=== PATIENT | female | born 1970 | race Caucasian/White ===

== ENCOUNTER 2017-07-15 11:44 | Inpatient (IN) | payer BC, OTHER ==
[2017-06-20 12:20] VITALS: Ht 157.5 cm; Wt 52.3 kg
--- NOTE | 2017-06-20 12:48 | PAT Medication Instructions ---
Service Date Jun 20, 2017. Current Home Medication List Bupropion (Wellbutrin-Xl), 300 MG PO QAM Cyanocobalamin (Vitamin B-12), 1,000 MCG PO QAM Folic Acid (Folic Acid), Unknown Dose PO QAM Gabapentin (Neurontin), 300 MG PO TID Hydrocodon/Acetaminophen 5MG/300MG (Vicodin (5MG/300MG)), 1 TAB PO Q6H PRN for Pain Multivitamin (Multivitamin), 1 TAB PO QAM Thiamine Hcl (Vitamin B-1), 50 MG PO QAM Trazodone Hcl (Trazodone), 50 MG PO HS PRN for Sleep Medication Instructions For Your Scheduled Surgery - Hold the following medications the morning of surgery: Cyanocobalamin (Vitamin B-12), 1,000 MCG PO QAM Folic Acid (Folic Acid), Unknown Dose PO QAM Multivitamin (Multivitamin), 1 TAB PO QAM Thiamine Hcl (Vitamin B-1), 50 MG PO QAM - Take the following medications the morning of surgery with a sip of water OTHERWISE NOTHING TO EAT OR DRINK AFTER MIDNIGHT: Bupropion (Wellbutrin-Xl), 300 MG PO QAM Gabapentin (Neurontin), 300 MG PO TID Hydrocodon/Acetaminophen 5MG/300MG (Vicodin (5MG/300MG)), 1 TAB PO Q6H PRN for Pain (if needed up to 4 hours prior to surgery) - Take the following medications as scheduled the night before surgery: Trazodone Hcl (Trazodone), 50 MG PO HS PRN for Sleep Gabapentin (Neurontin), 300 MG PO TID Hydrocodon/Acetaminophen 5MG/300MG (Vicodin (5MG/300MG)), 1 TAB PO Q6H PRN for Pain If you have any questions please call us at [phone] or [phone] or [phone]
--- NOTE | 2017-06-20 13:31 | DIAGNOSTIC IMAGING REPORT ---
TWO VIEW CHEST CLINICAL HISTORY: Preoperative examination. FINDINGS: PA and lateral chest radiographs are obtained. No prior studies are available for comparison at the time of dictation. The cardiomediastinal silhouette is unremarkable. The lungs and pleural spaces are clear. There is no pneumothorax. The bony thorax appears intact. IMPRESSION: No active disease in the chest. Electronically signed by: Gilberto Joya M.D. 06/20/2017 1:30 PM Dictated Date/Time: 06/20/2017 1:26 PM
[2017-06-20 13:38] LABS: URINE APPEARANCE CLOUDY (CLEAR); URINE COLOR DK YELLOW; URINE EPITHELIAL CELL AUTO >30 /lpf (0-5); URINE NITRITE NEG (NEG); URINE SPECIFIC GRAVITY 1.028 (1.000-1.030); UROBILINOGEN NEG (NEG)
[2017-06-20 13:46] LABS: BUN/CREATININE RATIO 9.9 (10-20); CALCIUM 8.5 mg/dl (8.5-10.1); CREATININE 0.5 mg/dl (0.60-1.20); POTASSIUM 3.9 mmol/L (3.5-5.1)
[2017-06-20 13:47] LABS: MANUAL MICROSCOPIC REQUIRED? NO; REVIEW REQ? NO; URINE BILIRUBIN NEG (NEG)
[2017-06-20 14:10] LABS: BASO % 0.4 %; BASO ABS # 0.03 K/uL (0-0.2); EOS % 0.7 %; HEMATOCRIT 37.5 % (37-47); IG% 0.1 %; LYMPH % 37.2 %; LYMPH ABS # 2.98 K/uL (1.2-3.4); MEAN CORPUSCULAR HEMOGLOBIN 38.3 pg (25-34); MEAN CORPUSCULAR HGB CONC 33.9 g/dl (32-36); MEAN PLATELET VOLUME 9.7 fL (7.4-10.4); MONO % 5.5 %; NEUT % 56.1 %; PLATELET COUNT 318 K/uL (130-400); RED BLOOD COUNT 3.32 M/uL (4.2-5.4); WHITE BLOOD COUNT 8.01 K/uL (4.8-10.8)
[2017-06-20 15:31] LABS: COMPLETE YES; HYPERSEGMENTED POLYS 1+
[~2017-07-15] VITALS: Ht 157.5 cm; Wt 52.3 kg
[2017-07-15] VITALS (7 sets, daily range): BP systolic 111–160; BP diastolic 72–111; PULSE 96–117; TEMP 36.5–36.9; O2SAT 97–100
[~2017-07-15 11:44] MED LIST: BUPRTAB51 PO; CLINDAMYCIN 600 MG/54 ML D5W IV SCH; CYAN10005 PO; FLV1 PO; GABA-113 PO; HYDR-3419 PO; LACTATED RINGER'S 1000ML 1,000 ML IV SCH; MULT-506 PO; THIA50TA3 PO; TRAZ50TA35 PO
[2017-07-15] MEDS ORDERED: HYDROmorphone INJ 1 MG/ML SYR IV PRN (13:00)
[2017-07-15] MEDS ORDERED: PROMETHAZINE HCL INJ 6.25 MG in SODIUM CHLORIDE 0.9% 50ML 50 ML IV PRN (13:00)
[2017-07-15] MEDS ORDERED: EpHEDrine SULFATE INJ 50 MG/ML AMP IV PRN (13:00)
[2017-07-15] MEDS ORDERED: ONDANSETRON INJ 2 MG/ML 2 ML VIAL IV PRN ×2 (13:00→15:45)
[2017-07-15] MEDS ORDERED: ATROPINE SULFATE 0.1 MG/ML 5ML SYR IV PRN (13:00)
--- NOTE | 2017-07-15 13:32 | History and Physical ---
History & Physical Date Jul 15, 2017. Chief Complaint Back and leg pain History of Present Illness The patient is a 47 year old female with complaints of back and leg pain Additional History Hepatic Disease: No Endocrine Disorder: No Kidney Disease: No Hypertension: No Heart Disease: No Bleeding Tendencies: No Infectious Diseases: No Allergies Coded Allergies: Sulfa Antibiotics (Verified Allergy, Severe, NAUSEA/VOMITING, 07/15/17) RADHA Inhibitors (Unverified Allergy, Unknown, UNKNOWN REACTION, 07/15/17) PER PCP RECORDS Penicillins (Verified Adverse Reaction, Severe, SEVERE N/V, 07/15/17) Home Medications Scheduled Bupropion (Wellbutrin-Xl), 300 MG PO QAM Cyanocobalamin (Vitamin B-12), 1,000 MCG PO QAM Folic Acid (Folic Acid), Unknown Dose PO QAM Gabapentin (Neurontin), 300 MG PO TID Multivitamin (Multivitamin), 1 TAB PO QAM Thiamine Hcl (Vitamin B-1), 50 MG PO QAM Scheduled PRN Hydrocodon/Acetaminophen 5MG/300MG (Vicodin (5MG/300MG)), 1 TAB PO Q6H PRN for Pain Trazodone Hcl (Trazodone), 50 MG PO HS PRN for Sleep Physical Examination Skin: warm/dry, no rash Eyes: normal inspection, EOMI, sclerae normal ENT: normal ENT inspection, pharynx normal Head: normocephalic, atraumatic Neck: supple, no adenopathy, trachea midline Respiratory/Chest: lungs clear, normal breath sounds, no respiratory distress Cardiovascular: regular rate, rhythm, no edema, no murmur Abdomen / GI: normal bowel sounds, non tender Back: normal inspection Extremities: normal inspection, normal range of motion Neurologic/Psych: no motor/sensory deficits, alert, normal reflexes, oriented x 3 Diagnosis Lumbar spinal stenosis Plan of Treatment TLIF L5-S1 with infuse bone graft
--- NOTE | 2017-07-15 13:32 | History & Physical Bridge Note ---
H&P Re-Evaluation Bridge Note: I have examined the patient, reviewed the History & Physical and in the interval since the performance of the History & Physical I have noted the following changes of clinical significance: No changes noted
[2017-07-15] MEDS ORDERED: MIDAZOLAM HCL 1 MG/ML 2ML VIAL ONE (13:42)
[2017-07-15] MEDS ORDERED: FENTANYL CITRATE INJ 50 MCG/1 ML 2 ML VIAL ONE ×2 (13:42→14:21)
[2017-07-15] MEDS ORDERED: HYDROmorphone INJ 2 MG/ML SYR/VIAL ONE ×2 (13:44→17:53)
[2017-07-15] MEDS ORDERED: BUPIVACAINE/EPINEPHRINE 0.5% MPF 1:200,000 30 ML VIAL ONE (13:56)
[2017-07-15] MEDS ORDERED: BACITRACIN 50000 UNIT VIAL ONE (13:56)
[2017-07-15] MEDS ORDERED: NEOSTIGMINE METHYLSULFATE 1 MG/ML 10ML VIAL ONE (14:49)
[2017-07-15] MEDS ORDERED: METOPROLOL TARTRATE 1 MG/ML VIAL ONE (14:49)
[2017-07-15] MEDS ORDERED: PROPOFOL IV EMULSION 10 MG/ML 20 ML VIAL IV ONE (14:49)
[2017-07-15] MEDS ORDERED: LIDOCAINE HCL 2% 2 ML VIAL (20MG/ML) ONE (14:49)
[2017-07-15] MEDS ORDERED: ROCURONIUM BROMIDE 10 MG/ML 5 ML VIAL IV ONE (14:49)
[2017-07-15] MEDS ORDERED: DEXAMETHASONE SOD INJ 4 MG/ML VIAL ONE (14:49)
[2017-07-15] MEDS ORDERED: GLYCOPYRROLATE INJ 0.2 MG/ML VIAL ONE ×2 (14:49→17:16)
[2017-07-15] MEDS ORDERED: ONDANSETRON INJ 2 MG/ML 2 ML VIAL ONE (14:49)
[2017-07-15] MEDS ORDERED: FLOSEAL HEMOSTATIC MATRIX 10ML TOP ONE (15:28)
[2017-07-15] MEDS ORDERED: SODIUM CHLORIDE 0.9% 1000ML 1,000 ML IV SCH (15:32)
--- NOTE | 2017-07-15 15:39 | [facility] Operative Report ---
Operative Report Operative Date Jul 15, 2017. Pre-Operative Diagnosis lumbar spinal stenosis Post-Operative Diagnosis same Procedure(s) Performed #1 lumbar decompression medial facetectomy foraminotomies L5-S1. #2 posterior spinal fusion L5-S1. #3 placement posterior instrumentation L5-S1. #4 interbody fusion L5-S1. #5 placement peek cage 11 x 22 mm L5-S1. #6 placement locally harvested morcellized autograft and posterior gutters. #7 placement infuse collagen sponge combined Master graft posterior gutters and ostial amp interbody space. Surgeon Dr. Green Passenger Elevator Operator Surgeon(s) Julianne Pringle PA-C Estimated Blood Loss 100 ml Findings Lumbar spinal stenosis with herniated was pulposus Specimens none per surgeon Description of Procedure Patient was met with preoperatively case discussed all questions addressed. After informed consent was obtained patient was taken to the operative suite underwent intubation and placed in a prone position the [place] table top Rubio frame. All bony prominences were well-padded eyes inspected to ensure there is no external pressure placed upon them. This point the lumbar spine was prepped and draped nostril fashion. Sharp dissection with the assistance of Bovie cautery was performed onto an exposing the lamina and transverse processes of L5 and sacral alar bilaterally. From a caudal to cephalad fashion complete laminectomy of L5 was performed including medial facet was foraminotomies. I also removed nucleus pulposus L5-S1 on the left with significant appreciable encroachment of the traversing S1 nerve root. After complete decompression pedicle screws were placed in L5 and S1 levels bilaterally with assistance of fluoroscopy the purposes patricia placed. Through a trans-foraminal approach on the left complete discectomy was performed and plate created to subcortical bleeding bone and a 11 x 22 mm peek cage filled with ostial amp tapped in position. The rods were then compressed locked into final position bilaterally. Transverse processes of L5 and the sacral alar burred to subcortical bleeding bone. Infuse collagen sponge mask graft locally harvested morcellized autograft was placed in the posterior lateral gutters. 15 round LIZETH drain inserted. Incision was then closed with 1 Vicryl in the fascia 2-0 Vicryl subcutaneous cutaneously 4-0 Monocryl for final skin closure Steri-Strip sterile dressing placed patient we can take PACU stable condition. Please note Julianne Martinez was present throughout the entire procedure involved in patient positioning complex portions of the surgeon final skin closure. I attest to the content of the Intraoperative Record and any orders documented therein. Any exceptions are noted below.
[2017-07-15] MEDS ORDERED: DO NOT ADMINISTER FLU VACCINE PRN ×3 (15:45)
[2017-07-15] MEDS ORDERED: FAMOTIDINE 20 MG TAB PO PRN (15:45)
[2017-07-15] MEDS ORDERED: NALOXONE HCL 0.4 MG/1 ML VIAL/CARP IV PRN ×2 (15:45)
[2017-07-15] MEDS ORDERED: BISACODYL 10 MG SUPP PR PRN (15:45)
[2017-07-15] MEDS ORDERED: SOD PHOSPHATE/SOD BIPHOSPHATE ENEMA 132 ML BTL PR PRN (15:45)
[2017-07-15] MEDS ORDERED: METOCLOPRAMIDE HCL INJ 5 MG/ML 2 ML VIAL IV PRN (15:45)
[2017-07-15] MEDS ORDERED: DO NOT ADMINISTER PNEUMOCOCCAL VACCINE PRN ×2 (15:45)
[2017-07-15] MEDS ORDERED: MAGNESIUM HYDROXIDE SUSP 30 ML UDC PO PRN (15:45)
[2017-07-15] MEDS ORDERED: hydrOXYzine HCL 25 MG TAB PO PRN (15:45)
[2017-07-15] MEDS ORDERED: PROMETHAZINE HCL INJ 12.5 MG in SODIUM CHLORIDE 0.9% 50ML 50 ML IV PRN (15:45)
[2017-07-15] MEDS ORDERED: ACETAMINOPHEN IV 100 ML IV PRN (15:45)
[2017-07-15] MEDS ORDERED: ALUMINUM/MAGNESIUM SUSP 30 ML UDC PO PRN (15:45)
[2017-07-15] MEDS ORDERED: LORAZEPAM INJ 0.5 MG in SYRINGE 0 ML IV PRN (15:45)
[2017-07-15] MEDS ORDERED: TRAZODONE HCL 50 MG TAB PO PRN (15:45)
--- NOTE | 2017-07-15 15:56 | DIAGNOSTIC IMAGING REPORT ---
LUMBAR SPINE 2 OR 3 VIEW CLINICAL HISTORY: L5-S1 LUMBAR INTERBODY FUSION COMPARISON STUDY: Lumbar spine MRI December 27, 2016 and lumbar spine radiograph January 31, 2017. Fluoroscopy time: 16.3 seconds. FINDINGS: These 2 fluoroscopic images demonstrate an L5-S1 discectomy with interbody spacer placement. There is a posterior decompression with bilateral pedicle screws and interconnecting rods at the L5 and S1 levels. Hardware is intact. IMPRESSION: Expected findings following L5-S1 discectomy and bilateral pedicle screw fusion. Electronically signed by: Justin Chance M.D. 07/15/2017 3:55 PM Dictated Date/Time: 07/15/2017 3:54 PM
[2017-07-15] MEDS ORDERED: HydrALAZINE HCL 20 MG/ML VIAL ONE ×2 (16:04→17:15)
--- NOTE | 2017-07-15 16:48 | Anesthesiology Progress Note ---
Anesthesia Progress Note Date of Service Jul 15, 2017. Progress Notes Pt very slow to arouse. Spent 40minutes in PACU to determine etiology. IGT=778 , 4/4 TOF, ETCO2=41 via mask, oral and nasal AW with encouragement to deep breathe and cough, pupils@5mm. VSS throughout period. 150/96-91-16-99% oxymask. Patient received fentanyl 200mcg and dilaudid 2mg given intraop. Finally decided to give narcan 0.08mgx2 with good effect. Patient much more arousable and deep breathing more effectively. Will fill out incident report.
[2017-07-15] MEDS: HYDROmorphone HCL 0.5MG/ML 50 ML CASSETTE IV PRN ×3 (17:12→23:04)
[2017-07-15] MEDS ORDERED: LABETALOL HCL IV 5 MG/ML 20ML IV ONE ×2 (17:15→17:16)
[2017-07-15] MEDS ORDERED: ACETAMINOPHEN 1000 MG/100 ML IV IV ONE (17:15)
[2017-07-15] MEDS: FENTANYL CITRATE INJ 50 MCG/1 ML 2 ML VIAL IV PRN ×4 (17:23→17:38)
[2017-07-15] MEDS ORDERED: NURSING VERBAL MED ORDER ONE ×3 (17:30→17:55)
[2017-07-15] MEDS ORDERED: HYDROmorphone INJ 0.5 MG/0.5 ML SYR IV PRN ×2 (18:15→18:16)
[2017-07-15] MEDS ORDERED: FENTANYL CITRATE INJ 50 MCG/1 ML 2 ML VIAL IV PRN (18:21)
--- NOTE | 2017-07-15 18:57 | Anesthesiology Progress Note ---
Anesthesia Post Op Note Date & Time Jul 15, 2017 at 18:55 Vital Signs Pain Intensity: 7 Vital Signs Past 12 Hours Date Time Temp Pulse Resp B/P (MAP) Pulse Ox O2 Delivery O2 Flow Rate FiO2 07/15/17 18:45 36.5 94 16 121/80 100 Nasal Cannula 4 07/15/17 18:41 126/78 07/15/17 18:38 101 22 07/15/17 18:38 101 22 100 07/15/17 18:37 116/71 07/15/17 18:33 102 20 100 07/15/17 18:33 101 20 07/15/17 18:31 127/93 07/15/17 18:28 102 16 98 07/15/17 18:28 102 16 07/15/17 18:27 132/82 07/15/17 18:23 99 22 07/15/17 18:23 100 22 100 07/15/17 18:21 114/78 07/15/17 18:18 101 18 100 07/15/17 18:18 100 18 07/15/17 18:16 102/75 07/15/17 18:13 98 18 100 07/15/17 18:13 97 18 07/15/17 18:11 112/71 07/15/17 18:08 97 21 07/15/17 18:08 97 21 100 07/15/17 18:06 108/71 07/15/17 18:03 92 22 99 07/15/17 18:03 94 22 07/15/17 18:01 104/77 07/15/17 17:58 92 21 100 07/15/17 17:58 92 21 07/15/17 17:56 113/73 07/15/17 17:53 96 26 99 07/15/17 17:53 96 26 07/15/17 17:51 123/78 07/15/17 17:48 99 27 99 07/15/17 17:48 99 27 07/15/17 17:46 127/85 07/15/17 17:43 93 26 07/15/17 17:43 94 26 99 07/15/17 17:41 105/72 07/15/17 17:38 92 29 07/15/17 17:38 92 29 100 07/15/17 17:36 115/76 07/15/17 17:33 90 21 99 11/13/17 17:33 90 21 17 17:31 114/78 17 17:28 92 20 17 17:28 91 20 99 17 17:26 109/73 17 17:23 90 21 17 17:23 90 21 99 17 17:21 107/73 17 17:18 92 24 99 17 17:18 90 24 17 17:16 112/77 17 17:13 92 17 98 07/15/17 17:13 94 17 07/15/17 17:11 125/84 07/15/17 17:08 93 16 100 17 17:08 93 16 07/15/17 17:06 132/89 17 17:03 93 29 100 17 17:03 93 29 07/15/17 17:02 94 24 100 07/15/17 17:02 94 24 07/15/17 17:01 94 20 127/84 100 17 17:01 94 20 07/15/17 16:56 96 22 134/88 100 07/15/17 16:56 96 22 07/15/17 16:51 98 25 17 16:51 98 25 167/94 98 17 16:46 88 21 185/113 99 17 16:46 88 21 17 16:41 97 28 07/15/17 16:41 97 28 150/96 100 17 16:36 91 18 17 16:36 90 18 155/95 99 17 16:31 91 18 152/93 98 17 16:31 84 18 17 16:30 84 16 152/93 97 Mask 10 17 16:26 89 18 17 16:26 88 18 154/94 99 17 16:21 84 19 17 16:21 84 19 146/92 99 17 16:20 82 21 146/92 99 Mask 10 17 16:16 84 17 17 16:16 84 17 98 17 16:15 137/89 07/15/17 16:12 138/92 07/15/17 16:11 82 17 07/15/17 16:11 36.1 82 22 138/92 98 Mask 10 07/15/17 16:11 82 17 98 07/15/17 12:30 36.9 112 20 131/111 99 Room Air 160/105 Notes Mental Status: alert / awake / arousable, participated in evaluation Pt Amnestic to Procedure: Yes Nausea / Vomiting: adequately controlled Pain: adequately controlled, improving with treatment Airway Patency, RR, SpO2: stable & adequate BP & HR: stable & adequate Hydration State: stable & adequate Anesthetic Complications: no major complications apparent Patient required two small doses of narcan in PACU with improvement in respiratory status. Unfortunately, she then experienced difficult to control post-op pain. I slowly added back small doses of narcotic with improvement in her pain scores while maintaining stable vital signs. COURT MANAGER was already modified by previous anesthesia provider and she was eventually transferred to floor in stable condition.
[2017-07-15] MEDS: LACTATED RINGER'S 1000ML 1,000 ML IV SCH (20:46)
--- NOTE | 2017-07-15 20:53 | Medical Consult ---
Consultation Date of Consultation: Jul 15, 2017. Attending Physician: Torey Green D.O. Reason for Consultation: Elevated blood pressure/ post op medical management History of Present Illness 47 yo Female with PMH of chronic back pain associated with left LE numbness, failed conservative management with steroid injection and physical management. S /P lumbar decompression surgery L5-S1. After the procedure today while in PACU , her blood pressure was elevated and she was hypoxic. She received 2 Narcan [facility] PACU[facility] Pt said that she does not have any history of elevating blood pressure. Denies any chest pain, palpitation, dizziness, SOB. Past Medical/Surgical History Chronic Back Pain Social History Smoking Status: Current Every Day Smoker Allergies Coded Allergies: Sulfa Antibiotics (Verified Allergy, Severe, NAUSEA/VOMITING, 07/15/17) RADHA Inhibitors (Unverified Allergy, Unknown, UNKNOWN REACTION, 07/15/17) PER PCP RECORDS Penicillins (Verified Adverse Reaction, Severe, SEVERE N/V, 07/15/17) Current Inpatient Medications Current Inpatient Medications Medications (Trade) Dose Ordered Sig/[place] Route Start Time Stop Time Status Last Admin Dose Admin Lactated Ringer's 1,000 ml @ 15 mls/hr Q24H IV 07/15/17 06:00 07/16/17 05:59 07/15/17 13:01 15 MLS/HR Clindamycin Phosphate 600 mg/ Dextrose 54 ml @ 100 mls/hr Q8H IV 07/15/17 15:45 07/16/17 00:18 UNV Dexamethasone Sodium Phosphate 6 mg/Syringe 1.5 ml @ 1 mls/min Q8H IV 07/16/17 00:00 07/16/17 16:02 Promethazine HCl 12.5 mg/Sodium Chloride 50.5 ml @ 202 mls/hr Q6H PRN IV 07/15/17 15:45 08/14/17 15:44 Ondansetron HCl (Zofran Inj) 4 mg Q6H PRN IV 07/15/17 15:45 08/14/17 15:44 Metoclopramide HCl (Reglan Inj) 10 mg Q6H PRN IV 07/15/17 15:45 08/14/17 15:44 Lorazepam (Ativan Tab) 0.5 mg Q8H PRN PO 07/15/17 15:45 08/14/17 15:44 Lorazepam 0.5 mg/ Syringe 0.25 ml @ 1 mls/min Q8H PRN IV 07/15/17 15:45 08/14/17 15:44 07/15/17 19:27 1 MLS/MIN Pneumococcal Polysaccharide Vaccine 1 ea PRN PRN N/A 07/15/17 15:45 08/14/17 15:44 Influenza Virus Vacc Triv Types A&B 1 ea PRN PRN N/A 07/15/17 15:45 08/14/17 15:44 Lactated Ringer's 1,000 ml @ 75 mls/hr [id number] IV 07/15/17 15:32 08/14/17 15:31 Polyethylene (Miralax Powder Packet) 17 gm Q6 PO 07/17/17 06:00 08/16/17 05:59 Bisacodyl (Dulcolax Supp) 10 mg DAILY PRN DE 07/15/17 15:45 08/14/17 15:44 Magnesium Hydroxide (Milk Of Magnesia Susp) 30 ml DAILY PRN PO 07/15/17 15:45 08/14/17 15:44 Hydromorphone HCl (Dilaudid Inj) 0.5-1mg prn moder... Q3H PRN IV 07/16/17 06:01 07/30/17 06:00 Oxycodone HCl (Roxicodone Immediate Rel Tab) 5-10mg prn moderate to sev... Q4H PRN PO 07/16/17 06:01 07/30/17 06:00 Acetaminophen (Tylenol Tab) 1,000 mg Q8H PRN PO 07/15/17 15:45 08/14/17 15:44 Acetaminophen 100 ml @ 400 mls/hr Q8H PRN IV 07/15/17 15:45 08/14/17 15:44 Naloxone HCl (Narcan Inj) 0.1 mg Q5M PRN IV 07/15/17 15:45 08/14/17 15:44 Senna/Docusate Sodium (Senokot S Tab) 2 tab HS PO 07/15/17 21:00 08/14/17 20:59 Sodium Biphosphate/ Sodium Phosphate (Fleet Enema) 132 ml ONE PRN DE 07/15/17 15:45 08/14/17 15:44 Hydroxyzine HCl (Vistaril Tab) 25 mg Q8H PRN PO 07/15/17 15:45 08/14/17 15:44 Al Hydroxide/Mg Hydroxide (Maalox Susp) 30 ml Q6H PRN PO 07/15/17 15:45 08/14/17 15:44 Famotidine (Pepcid Tab) 20 mg Q12 PRN PO 07/15/17 15:45 08/14/17 15:44 Diphenhydramine HCl (Benadryl Cap) 25 mg Q6H PRN PO 07/15/17 15:45 08/14/17 15:44 Miscellaneous Information (Discontinue DENSITOMETRIST) 1 ea ONE ONCE N/A 07/16/17 06:00 07/16/17 06:01 Naloxone HCl (Narcan Inj) 0.1 mg Q5M PRN IV 07/15/17 15:45 07/16/17 06:01 Hydromorphone HCl (Dilaudid Veneer Joiner) 25 mg PRN PRN IV 07/15/17 15:45 07/16/17 06:01 07/15/17 18:58 25 MG Sodium Chloride 1,000 ml @ 15 mls/hr Q24H IV 07/15/17 15:32 07/16/17 06:01 Bupropion HCl (Wellbutrin-Xl Tab) 300 mg QAM PO 07/16/17 09:00 08/15/17 08:59 Gabapentin (Neurontin Cap) 300 mg TID PO 07/15/17 21:00 08/14/17 20:59 UNV Thiamine HCl (Vitamin B-1 Tab) 50 mg QAM PO 07/16/17 09:00 08/15/17 08:59 UNV Trazodone HCl (Desyrel Tab) 50 mg HS PRN PO 07/15/17 15:45 08/14/17 15:44 Hydromorphone HCl (Dilaudid Inj) 0.2 mg Q5M PRN IV 07/15/17 18:16 07/15/17 22:00 Fentanyl Citrate (Fentanyl Inj) 25 mcg Q5M PRN IV 07/15/17 18:21 Review of Systems Constitutional: No fever, No chills Eyes: + worsening of vision, + eye pain ENT: No nasal symptoms, No sore throat Respiratory: No cough, No sputum, No shortness of breath Cardiovascular: No chest pain, No claudication, No palpitations Abdomen: No pain, No nausea, No vomiting Musculoskeletal: + joint pain, No calf pain Genitourinary - Female: No dysuria, No urinary frequency Neurologic: No memory loss Psychiatric: No substance abuse Endocrine: No fatigue Hematologic / Lymphatic: No abnormal bleeding/bruising Integumentary: No rash, No itch Physical Exam Date Time Temp Pulse Resp B/P (MAP) Pulse Ox O2 Delivery O2 Flow Rate FiO2 07/15/17 19:27 36.8 101 18 128/79 (95) 99 Nasal Cannula 2.0 07/15/17 19:00 100 Nasal Cannula 2.0 07/15/17 19:00 36.5 96 16 127/83 (98) 100 Nasal Cannula 2.0 07/15/17 19:00 100 Nasal Cannula 2.0 07/15/17 18:45 36.5 94 16 121/80 100 Nasal Cannula 4 07/15/17 18:41 126/78 07/15/17 18:38 101 22 07/15/17 18:38 101 22 100 07/15/17 18:37 116/71 07/15/17 18:33 102 20 100 07/15/17 18:33 101 20 07/15/17 18:31 127/93 07/15/17 18:28 102 16 98 07/15/17 18:28 102 16 07/15/17 18:27 132/82 07/15/17 18:23 99 22 07/15/17 18:23 100 22 100 07/15/17 18:21 114/78 07/15/17 18:18 101 18 100 07/15/17 18:18 100 18 07/15/17 18:16 102/75 07/15/17 18:13 98 18 100 07/15/17 18:13 97 18 07/15/17 18:11 112/71 07/15/17 18:08 97 21 07/15/17 18:08 97 21 100 07/15/17 18:06 108/71 07/15/17 18:03 92 22 99 07/15/17 18:03 94 22 07/15/17 18:01 104/77 11/13/17 17:58 92 21 100 13/17 17:58 92 21 17 17:56 113/73 17 17:53 96 26 99 07/15/17 17:53 96 26 07/15/17 17:51 123/78 17 17:48 99 27 99 07/15/17 17:48 99 27 17 17:46 127/85 17 17:43 93 26 17 17:43 94 26 99 1317 17:41 105/72 17 17:38 92 29 07/15/17 17:38 92 29 100 17 17:36 115/76 17 17:33 90 21 99 17 17:33 90 21 17 17:31 114/78 17 17:28 92 20 17 17:28 91 20 99 17 17:26 109/73 17 17:23 90 21 17 17:23 90 21 99 17 17:21 107/73 17 17:18 92 24 99 17 17:18 90 24 17 17:16 112/77 17 17:13 92 17 98 17 17:13 94 17 07/15/17 17:11 125/84 17 17:08 93 16 100 17 17:08 93 16 17 17:06 132/89 07/15/17 17:03 93 29 100 17 17:03 93 29 17 17:02 94 24 100 17 17:02 94 24 17 17:01 94 20 127/84 100 17 17:01 94 20 17 16:56 96 22 134/88 100 07/15/17 16:56 96 22 07/15/17 16:51 98 25 1317 16:51 98 25 167/94 98 13/17 16:46 88 21 185/113 99 13/17 16:46 88 21 17 16:41 97 28 07/15/17 16:41 97 28 150/96 100 07/15/17 16:36 91 18 07/15/17 16:36 90 18 155/95 99 07/15/17 16:31 91 18 152/93 98 07/15/17 16:31 84 18 07/15/17 16:30 84 16 152/93 97 Mask 10 07/15/17 16:26 89 18 07/15/17 16:26 88 18 154/94 99 07/15/17 16:21 84 19 07/15/17 16:21 84 19 146/92 99 07/15/17 16:20 82 21 146/92 99 Mask 10 07/15/17 16:16 84 17 07/15/17 16:16 84 17 98 07/15/17 16:15 137/89 07/15/17 16:12 138/92 07/15/17 16:11 82 17 07/15/17 16:11 36.1 82 22 138/92 98 Mask 10 07/15/17 16:11 82 17 98 07/15/17 12:30 36.9 112 20 131/111 99 Room Air 160/105 General Appearance: WD/WN, no apparent distress Head: normocephalic, atraumatic Eyes: PERRL, EOMI ENT: hearing grossly normal Neck: no JVD, trachea midline Respiratory/Chest: normal breath sounds, no respiratory distress, no accessory muscle use Cardiovascular: no edema, no JVD, + tachycardia Abdomen/GI: normal bowel sounds, non tender Back: + pertinent finding (Back pain, LIZETH drainage in place, dressing) Extremities/Musculoskelatal: no calf tenderness, no pedal edema Neurologic/Psych: alert, normal mood/affect, normal reflexes, oriented x 3 Skin: warm/dry, no rash Laboratory Results Last 24 Hours Test 07/15/17 16:25 Bedside Glucose 166 mg/dl Assessment & Plan Chronic Back Pain S/P day#0 Lumbar decompression L5-S1 performed by Dr. Green Continue pain control as per ortho Monitor hgb Incentive spirometry Hypoxia Mostly related to sedation/opiate Received Narcan in PACU Has been saturated 99% on 2L Continue incentive spirometry Stable Elevated BP Occurs in PACU possible related to anxiety due to hypoxia BP stable now continue monitor BP Elevated Glucose Mostly related to steroid Check Hba1c in am Continue monitor DVT px as per Ortho CODE Status FULL CODE
[2017-07-15] MEDS: DOCUSATE SODIUM/SENNA 50/8.6MG TAB PO SCH (21:06)
[2017-07-15] MEDS: GABAPENTIN 300 MG CAP PO SCH (21:06)
[2017-07-15] MEDS: CLINDAMYCIN IV 600 MG in DEXTROSE 5% 50ML 46 ML IV SCH (21:36)
[2017-07-15] MEDS: DEXAMETHASONE INJ 6 MG in SYRINGE 0 ML IV SCH (23:34)
[2017-07-16 03:10] VITALS: BP 136/87; PULSE 114; TEMP 36.8; O2SAT 97
[2017-07-16] MEDS: LORAZEPAM 0.5 MG TAB PO PRN (04:06)
[2017-07-16] MEDS: LACTATED RINGER'S 1000ML 1,000 ML IV SCH (04:52)
[2017-07-16] MEDS: CLINDAMYCIN IV 600 MG in DEXTROSE 5% 50ML 46 ML IV SCH (05:26)
[2017-07-16] MEDS ORDERED: NURSING VERBAL MED ORDER ONE (05:45)
[2017-07-16] MEDS ORDERED: DC PCA ONE (06:00)
[2017-07-16] MEDS: OXYCODONE HCL IR 5 MG TAB (IMMEDIATE RELEASE) PO PRN ×3 (06:35→14:46)
[2017-07-16 07:11] VITALS: BP 159/96; PULSE 109; TEMP 36.6; O2SAT 97
[2017-07-16 07:29] LABS: HEMATOCRIT 33.5 % (37-47); IG% 0.3 %; LYMPH % 4.9 %; LYMPH ABS # 0.65 K/uL (1.2-3.4); MEAN CELL VOLUME 110.6 fL (80-100); MEAN CORPUSCULAR HEMOGLOBIN 37.6 pg (25-34); MEAN PLATELET VOLUME 9.4 fL (7.4-10.4); MONO % 5.1 %; NEUT % 89.7 %; PLATELET COUNT 287 K/uL (130-400); RED BLOOD COUNT 3.03 M/uL (4.2-5.4); WHITE BLOOD COUNT 13.25 K/uL (4.8-10.8)
[2017-07-16] MEDS: ACETAMINOPHEN 500 MG TAB PO PRN (07:47)
[2017-07-16] MEDS: DEXAMETHASONE INJ 6 MG in SYRINGE 0 ML IV SCH ×2 (07:48→16:06)
[2017-07-16 07:50] LABS: COMPLETE YES; HYPERSEGMENTED POLYS 1+; VACUOLIZATION 1+
[2017-07-16 07:56] LABS: BUN/CREATININE RATIO 7.4 (10-20); CALCIUM 8.4 mg/dl (8.5-10.1); CREATININE 0.56 mg/dl (0.60-1.20); POTASSIUM 3.3 mmol/L (3.5-5.1)
--- NOTE | 2017-07-16 08:04 | Anesthesiology Progress Note ---
Anesthesia Post Op Note Date & Time Jul 16, 2017 at 08:03 Vital Signs Pain Intensity: 8.0 Vital Signs Past 12 Hours Date Time Temp Pulse Resp B/P (MAP) Pulse Ox O2 Delivery O2 Flow Rate FiO2 07/16/17 07:11 36.6 109 19 159/96 (117) 97 Room Air 07/16/17 03:10 36.8 114 16 136/87 (103) 97 Room Air 07/15/17 23:32 Room Air 07/15/17 23:01 36.9 117 18 124/78 (93) 98 Room Air 07/15/17 22:02 36.5 116 16 111/75 (87) 99 Nasal Cannula 2.0 07/15/17 21:07 36.5 114 16 112/72 (85) 99 Nasal Cannula 2.0 07/15/17 20:05 36.5 109 18 128/86 (100) 97 Room Air Notes Mental Status: alert / awake / arousable, participated in evaluation Pt Amnestic to Procedure: Yes Nausea / Vomiting: adequately controlled Pain: adequately controlled Airway Patency, RR, SpO2: stable & adequate BP & HR: stable & adequate Hydration State: stable & adequate Anesthetic Complications: no major complications apparent
[2017-07-16] MEDS: BuPROPion XL 300 MG TABCR PO SCH (08:52)
[2017-07-16] MEDS: THIAMINE HCL 50 MG TAB PO SCH (08:52)
[2017-07-16] MEDS: GABAPENTIN 300 MG CAP PO SCH ×3 (08:53→20:43)
[2017-07-16] MEDS ORDERED: RXC5 PO (10:17)
--- NOTE | 2017-07-16 10:17 | Discharge Instructions ---
Discharge Instructions Date of Service Jul 16, 2017. Admission Reason for Admission: Spinal Stenosis Discharge Discharge Diagnosis / Problem: lumbar stenosis Discharge Goals Goal(s): Improve function Activity Recommendations Activity Limitations: per Instructions/Follow-up section . Instructions / Follow-Up Instructions / Follow-Up ACTIVITY RECOMMENDATIONS: SELF CARE INSTRUCTIONS AFTER THORACIC/LUMBAR FUSIONS 1. You may walk to your tolerance. It is good exercise for your legs and back. Expect some back and intermittent leg aches and pains. 2. You may perform "counter-top" level activities (make a sandwich, marcia with a project, etc.). 3. No bending or lifting of more than 10 pounds or back twisting of any nature (roll like a log when turning in bed). 4. You may ride in a car for 20-30 minutes at a time. No driving until after your first visit with your doctor. 5. Frequent changes of position and restricting sitting to 30 minutes at a time will help limit the amount of back spasms and stiffness you may experience. 6. You may discontinue the use of ambulatory aids (cane, crutches, etc.) once your strength and confidence allow. 7. You may principal web developer the shower and let water strike your incision when you arrive home at least once daily. Do not take a tub bath, sit in a hot tub or go into a swimming pool until after your first recheck in the office. SPECIAL CARE INSTRUCTIONS: VERY IMPORTANT TO READ AND REVIEW A. Your surgical incision has been closed with a cosmetic suture under the skin that will dissolve in about 6 weeks. In 14 days, you can use a pair of clean scissors and cut the suture that is left outside of the skin at the ends of your incision. 1. The small skin tapes can be removed 7 days after surgery if they have not fallen off by that point. 2. You may keep the wound open to air as much as possible to promote healing after post-op day number 5 unless told otherwise by your doctor. 3. If you think the wound looks like it is becoming infected (redness or worsening drainage) and/or you are experiencing fever, chill or worsening back pain and muscle spasms, contact the office so that we may evaluate you as soon as possible. B. Complications are uncommon, but please contact us if you have any signs or symptoms of: 1. wound infection (fever higher than 102.5 degrees F, redness, separation of wound, drainage, or increasing pain from the incision) 2. blood clots in legs (pain, swelling, redness and warmth in legs) 3. urinary tract infection (fever higher than 102.5 degrees F, burning upon urination or increased frequency of urination) 4. nerve problems (inability to walk on your toes or heels, numbness, loss of bowel or bladder control) 5. any other symptoms that concern you C. Please call the office at if you have any concerns or questions about your operation or recovery. D. No smoking! Smoking drastically decreases the chance of a solid fusion. E. Do not take any anti-inflammatory medications (Indocin, Advil, Motrin, Aspirin, Naprosyn, etc.) as these may inhibit the chance of a solid fusion. Tylenol is okay to take for pain. MANAGING PAIN AFTER SPINAL SURGERY 1. Narcotic medication is intended for short-term use and will be provided for surgical pain. Surgical pain usually lasts for a period of 4-6 weeks. Narcotic medication includes Percocet, Vicodin, Darvocet, Tylenol #3 or Lortab. 2. Longer-term pain is more appropriately treated with non-narcotic medication such as Tylenol ES. 3. Muscle spasm is not appropriately treated with narcotics. Muscle relaxers such as Soma, Flexeril or Skelaxin can be used along with Tylenol ES. 4. Remember that we all live with some "aches and pains". This is not unusual or uncommon after an injury or as we get older. a. Back pain is expected and may include muscle spasms for 4 to 6 weeks after surgery. The pain should gradually improve. If the pain worsens for no apparent reason, please contact the office. b. Intermittent leg pain may also be experienced and should not be concerned about unless it worsens for no apparent reason. If so, please contact the office. 5. We will provide appropriate medication within the normal guidelines of their prescribed use. We will also be very cautious and aware of potential abuse and extended duration of patients' medication needs. a. Pain medications are for your comfort and to assist with sleep and rest so that the tissue can heal. They are not provided in order to return to normal activity and should not be used through the day. To do so or worsening pain at night can result from ongoing tissue damage and development of tolerance to the prescribed medicine. 6. Please allow 2-3 days to process refills. Prescriptions will not be mailed but must be picked up at the office. FOLLOW UP VISIT: Keep your scheduled follow-up appointment. Any questions, please call the office at . Current Hospital Diet Patient's current hospital diet: Regular Diet Discharge Diet Recommended Diet: Regular Diet Procedures Procedures Performed: #1 lumbar decompression medial facetectomy foraminotomies L5-S1. #2 posterior spinal fusion L5-S1. #3 placement posterior instrumentation L5-S1. #4 interbody fusion L5-S1. #5 placement peek cage 11 x 22 mm L5-S1. #6 placement locally harvested morcellized autograft and posterior gutters. #7 placement infuse collagen sponge combined Master graft posterior gutters and ostial amp interbody space. Pending Studies Studies pending at discharge: no Medical Emergencies . Who to Call and When: Medical Emergencies: If at any time you feel your situation is an emergency, please call 911 immediately. . Non-Emergent Contact Non-Emergency issues call your: Primary Care Provider . "Provider Documentation" section prepared by Torey Green. . VTE Core Measure Inpt VTE Proph given/why not?: Vance Qiu, [facility]
[2017-07-16 10:58] VITALS: BP 144/94; PULSE 108; O2SAT 97
[2017-07-16] MEDS: HYDROmorphone INJ 0.5 MG/0.5 ML SYR IV PRN ×4 (12:20→22:35)
--- NOTE | 2017-07-16 15:06 | Progress Note ---
Progress Note Date of Service Jul 16, 2017. Progress Note Patient's postop day #1. Back pain is controlled. Leg symptoms improved. She seemed waiting halls. Vital signs are stable. LIZETH drain decreasing appropriately. Assessment status post lumbar decompression fusion. Planned this time continue physical therapy advance her bowel regimen anticipate home in the next day or so.
[2017-07-16 15:18] VITALS: BP 136/91; PULSE 88; TEMP 36.4; O2SAT 97
[2017-07-16] MEDS ORDERED: POTASSIUM CHLORIDE 10 MEQ TABCR PO STA (20:02)
--- NOTE | 2017-07-16 20:05 | Progress Note ---
Internal Med Progress Note Date of Service: Jul 16, 2017. Provider Documentation: SUBJECTIVE: awake and alert , conversing no hypoxia , in room air , no complain of SOB mentions that she felt SOB right after recovering form anesthesia not able to breath had multiple surgeries in past -including hand surgery , tubal ligation , removal of ovary -never had reaction to anesthesia in past her symptoms has resolved since morning able to walk on hallway with no supplemental 02 did PT/OT OBJECTIVE: Vital Signs-as noted below Exam: General-very pleasant , well appearing female, no sign of distress Eyes-sclera non icteric , PERRLA/EOMI ENT-NAD Neck-no thyromegaly, no carotid bruit , trachea midline Lungs-CTA , no wheeze or rales , good air entry Heart-regular S1/S2 Abdomen-soft, non tender Extremities-no lower ext edema , no rash or deformity , s/p lumber decompression surgery LIZETH drain present Neuro-AAO x3, no focal deficit Lab data as noted below. ASSESSMENT & PLAN: Chronic Back Pain/Lumber decompression surgery S/P day#1 Lumbar decompression L5-S1 performed by Dr. Green recovering well Post op has minimum back pain doing well in PT/OT Hypoxia resolve, in room air no complain of SOB , LLANOS Mostly related to sedation/opiate; side effect form anesthesia pt was given Narcan in PACU her symptoms resolved since morning walking in hallway without SOB no supplemental 02 stable incentive spirometry DVT px as per Ortho CODE Status FULL CODE DISPOSITION Per Ortho Medically stable Vital Signs: Date Time Temp Pulse Resp B/P (MAP) Pulse Ox O2 Delivery O2 Flow Rate FiO2 07/17/17 07:40 36.8 76 14 122/82 (95) 96 Room Air 07/17/17 06:05 36.6 81 16 135/85 (102) 97 Room Air 07/17/17 00:05 Room Air 07/16/17 23:20 37.0 95 16 132/78 (96) 96 Room Air 07/16/17 15:55 Room Air 07/16/17 15:18 36.4 88 18 136/91 (106) 97 Room Air 07/16/17 10:58 108 16 144/94 (111) 97 Room Air Lab Results: Results Past 24 Hours Test 07/17/17 06:29 Range/Units White Blood Count 11.78 4.8-10.8 K/uL Red Blood Count 2.74 4.2-5.4 M/uL Hemoglobin 10.2 12.0-16.0 g/dL Hematocrit 30.8 37-47 % Mean Corpuscular Volume 112.4 80-100 fL Mean Corpuscular Hemoglobin 37.2 25-34 pg Mean Corpuscular Hemoglobin Concent 33.1 32-36 g/dl RDW Standard Deviation 57.8 36.4-46.3 fL RDW Coefficient of Variation 14.5 11.5-14.5 % Platelet Count 244 130-400 K/uL Mean Platelet Volume 9.8 7.4-10.4 fL Sodium Level 142 136-145 mmol/L Potassium Level 3.7 3.5-5.1 mmol/L Chloride Level 105 98-107 mmol/L Carbon Dioxide Level 27 21-32 mmol/L Anion Gap 10.0 3-11 mmol/L Blood Urea Nitrogen 5 7-18 mg/dl Creatinine 0.57 0.60-1.20 mg/dl Est Creatinine Clear Calc Drug Dose 95.5 ml/min Estimated GFR () 127.1 Estimated GFR (Non- 109.6 BUN/Creatinine Ratio 8.1 10-20 Random Glucose 185 70-99 mg/dl Calcium Level 8.7 8.5-10.1 mg/dl Magnesium Level 1.5 1.8-2.4 mg/dl
[2017-07-16] MEDS: DOCUSATE SODIUM/SENNA 50/8.6MG TAB PO SCH (20:42)
[2017-07-16 23:20] VITALS: BP 132/78; PULSE 95; TEMP 37; O2SAT 96
[2017-07-17] MEDS: OXYCODONE HCL IR 5 MG TAB (IMMEDIATE RELEASE) PO PRN ×5 (02:00→19:17)
[2017-07-17] MEDS: HYDROmorphone INJ 0.5 MG/0.5 ML SYR IV PRN ×4 (05:12→17:18)
[2017-07-17] MEDS: POLYETHYLENE (MIRALAX) 17 GM PACK PO SCH ×2 (05:13→12:00)
[2017-07-17 06:05] VITALS: BP 135/85; PULSE 81; TEMP 36.6; O2SAT 97
[2017-07-17 06:54] LABS: HEMATOCRIT 30.8 % (37-47); MEAN CELL VOLUME 112.4 fL (80-100); MEAN CORPUSCULAR HEMOGLOBIN 37.2 pg (25-34); MEAN CORPUSCULAR HGB CONC 33.1 g/dl (32-36); MEAN PLATELET VOLUME 9.8 fL (7.4-10.4); PLATELET COUNT 244 K/uL (130-400); RED BLOOD COUNT 2.74 M/uL (4.2-5.4); WHITE BLOOD COUNT 11.78 K/uL (4.8-10.8)
[2017-07-17 07:36] LABS: BUN/CREATININE RATIO 8.1 (10-20); CALCIUM 8.7 mg/dl (8.5-10.1); CREATININE 0.57 mg/dl (0.60-1.20); MAGNESIUM 1.5 mg/dl (1.8-2.4); POTASSIUM 3.7 mmol/L (3.5-5.1)
[2017-07-17 07:40] VITALS: BP 122/82; PULSE 76; TEMP 36.8; O2SAT 96
[2017-07-17] MEDS: BuPROPion XL 300 MG TABCR PO SCH (07:53)
[2017-07-17] MEDS: GABAPENTIN 300 MG CAP PO SCH ×4 (07:53→20:32)
[2017-07-17] MEDS: THIAMINE HCL 50 MG TAB PO SCH (07:53)
[2017-07-17 08:52] VITALS: O2SAT 96
[2017-07-17] MEDS ORDERED: MAGNESIUM SULFATE 1GM / D5W 1 GM in PREMIXED IN D5W 100 ML IV ONE (09:30)
[2017-07-17 11:31] VITALS: BP 140/90; PULSE 74; TEMP 36.7; O2SAT 99
--- NOTE | 2017-07-17 13:48 | Progress Note ---
Progress Note Date of Service Jul 17, 2017. Progress Note Back pain is controlled leg symptoms are improved. Vital signs are stable. On exam she is in complaining halls has good strength testing. Assessment status post lumbar depression fusion replant this time will continue physical therapy anticipate most likely getting home tomorrow.
[2017-07-17] MEDS ORDERED: NURSING VERBAL MED ORDER ONE (14:15)
[2017-07-17 15:01] VITALS: BP 136/86; PULSE 96; TEMP 37; O2SAT 99
[2017-07-17] MEDS: ACETAMINOPHEN 500 MG TAB PO PRN (19:17)
[2017-07-17] MEDS: DOCUSATE SODIUM/SENNA 50/8.6MG TAB PO SCH (20:32)
[2017-07-17] MEDS: LORAZEPAM 0.5 MG TAB PO PRN (20:33)
--- NOTE | 2017-07-17 22:12 | Progress Note ---
Internal Med Progress Note Date of Service: Jul 17, 2017. Provider Documentation: SUBJECTIVE: has ongoing back pain having spasm at back with movement , getting out of bed no episode of hypoxia or SOB no LLANOS , in room air OBJECTIVE: Vital Signs-as noted below Exam: General-very pleasant , well appearing female, no sign of distress Eyes-sclera non icteric , PERRLA/EOMI ENT-NAD Neck-no thyromegaly, no carotid bruit , trachea midline Lungs-CTA , no wheeze or rales , good air entry Heart-regular S1/S2 Abdomen-soft, non tender Extremities-no lower ext edema , no rash or deformity , s/p lumber decompression surgery LIZETH drain present Neuro-AAO x3, no focal deficit Lab data as noted below. ASSESSMENT & PLAN: Chronic Back Pain/Lumber decompression surgery S/P day# 2 Lumbar decompression L5-S1 performed by Dr. Green still having considerable amount of back pain at surgical site cont pain management per ortho complains of muscle spasm at para spinal muscles with movement muscle relaxant Flexeril ordered Hypoxia resolve, in room air no complain of SOB , LLANOS Mostly related to sedation/opiate; side effect form anesthesia post op pt was given Narcan in PACU her symptoms resolved since morning walking in hallway without SOB no supplemental 02 stable incentive spirometry DVT px as per Ortho CODE Status FULL CODE DISPOSITION Per Ortho Medically stable Vital Signs: Date Time Temp Pulse Resp B/P (MAP) Pulse Ox O2 Delivery O2 Flow Rate FiO2 07/17/17 16:09 Room Air 07/17/17 15:01 37.0 96 18 136/86 (103) 99 Room Air 07/17/17 11:31 36.7 74 16 140/90 (107) 99 Room Air 07/17/17 09:06 Room Air 07/17/17 08:52 96 07/17/17 07:40 36.8 76 14 122/82 (95) 96 Room Air 07/17/17 06:05 36.6 81 16 135/85 (102) 97 Room Air 07/17/17 00:05 Room Air 07/16/17 23:20 37.0 95 16 132/78 (96) 96 Room Air Lab Results: Results Past 24 Hours Test 07/17/17 06:29 Range/Units White Blood Count 11.78 4.8-10.8 K/uL Red Blood Count 2.74 4.2-5.4 M/uL Hemoglobin 10.2 12.0-16.0 g/dL Hematocrit 30.8 37-47 % Mean Corpuscular Volume 112.4 80-100 fL Mean Corpuscular Hemoglobin 37.2 25-34 pg Mean Corpuscular Hemoglobin Concent 33.1 32-36 g/dl RDW Standard Deviation 57.8 36.4-46.3 fL RDW Coefficient of Variation 14.5 11.5-14.5 % Platelet Count 244 130-400 K/uL Mean Platelet Volume 9.8 7.4-10.4 fL Sodium Level 142 136-145 mmol/L Potassium Level 3.7 3.5-5.1 mmol/L Chloride Level 105 98-107 mmol/L Carbon Dioxide Level 27 21-32 mmol/L Anion Gap 10.0 3-11 mmol/L Blood Urea Nitrogen 5 7-18 mg/dl Creatinine 0.57 0.60-1.20 mg/dl Est Creatinine Clear Calc Drug Dose 95.5 ml/min Estimated GFR () 127.1 Estimated GFR (Non- 109.6 BUN/Creatinine Ratio 8.1 10-20 Random Glucose 185 70-99 mg/dl Calcium Level 8.7 8.5-10.1 mg/dl Magnesium Level 1.5 1.8-2.4 mg/dl
[2017-07-17] MEDS: CYCLOBENZAPRINE HCL 5 MG TAB PO SCH (22:51)
[2017-07-17 22:52] VITALS: BP 134/76; PULSE 72; TEMP 36.7; O2SAT 98
[2017-07-18] MEDS: OXYCODONE HCL IR 5 MG TAB (IMMEDIATE RELEASE) PO PRN ×2 (03:30→08:35)
[2017-07-18] MEDS: ACETAMINOPHEN 500 MG TAB PO PRN (04:34)
[2017-07-18] MEDS: LORAZEPAM 0.5 MG TAB PO PRN (05:48)
[2017-07-18 07:30] VITALS: BP 161/89; PULSE 66; TEMP 36.8; O2SAT 98
[2017-07-18] MEDS: GABAPENTIN 300 MG CAP PO SCH (09:00)
[2017-07-18] MEDS: CYCLOBENZAPRINE HCL 5 MG TAB PO SCH (09:17)
[2017-07-18] MEDS: THIAMINE HCL 50 MG TAB PO SCH (09:17)
[2017-07-18] MEDS: BuPROPion XL 300 MG TABCR PO SCH (09:18)
[2017-07-18] MEDS ORDERED: FLX5 PO (09:50)
--- NOTE | 2017-07-18 12:24 | Discharge Summary ---
Orthopedic Discharge Summary Admission Date/Reason Jul 15, 2017 at 13:30 Spinal Stenosis. Discharge Date/Disposition Jul 18, 2017 Home Diagnosis Principal Diagnosis: Lumbar spinal stenosis Admission Physical Exam As per Admitting History & Physical. Hospital Course Patient underwent lumbar decompression fusion tolerated this well as taken to the orthopedic floor postoperatively. Postoperative day 1 she was up and amatory progressed to postoperative day #2. LIZETH drain still significant To postoperative day #3. She subsequently discharge home postoperative day #3. Discharge Instructions Please refer to the electronic Patient Visit Report (Discharge Instructions) for additional information.
[2017-07-18 12:29] VITALS: BP 161/89; PULSE 66; TEMP 36.8; O2SAT 98
== END 2017-07-18 12:55 | disposition home or self-care (01) | DRG 454 ==
LOC: C.ACU 11:44 → C.3E 13:30 → ENRESERV 16:59
PROVIDERS: ADMIT Orthopaedic Surgery Orthopaedic Surgery of the Spine; ATTEND Orthopaedic Surgery Orthopaedic Surgery of the Spine
PROC: 0SG10J1 Fusion of 2 or more Lumbar Vertebral Joints with Synthetic Substitute, Posterior Approach, Posterior Column, Open Approach (ICD-10-PCS; principal; 2017-07-15 13:55)
PROC: 0SG30AJ Fusion of Lumbosacral Joint with Interbody Fusion Device, Posterior Approach, Anterior Column, Open Approach (ICD-10-PCS; principal; 2017-07-15 13:55)
DX: M48.061 Spinal stenosis, lumbar region without neurogenic claudication (principal); G97.82 Other postprocedural complications and disorders of nervous system; Z88.2 Allergy status to sulfonamides; Z88.0 Allergy status to penicillin